=== PATIENT | female | born 1965 | race Caucasian/White ===

== ENCOUNTER → 2019-06-09 09:45 | Outpatient (CLI) | payer OTHER, SELFPAY ==
[2019-06-09 10:25] LABS: Anion Gap 13.5 mEq/L (5-15); Blood Urea Nitrogen 18 mg/dL (7-18); Calcium 9.1 mg/dL (8.5-10.1); Carbon Dioxide 30 mmol/L (21.0-32.0); Chloride 104 mmol/L (98-107); Estimated Glomerular Filt Rate 47 ml/min (>60); GFR (African American) 57 ML/MIN (>60); Glucose 110 mg/dL (74-106); Potassium 4.5 mmoL/L (3.5-5.1); Sodium 143 mmol/L (137-145)
== END ==
LOC: LAB 09:45
PROVIDERS: Visit Provider Nurse Practitioner Family
DX: I11.9 Hypertensive heart disease without heart failure (principal); I73.9 Peripheral vascular disease, unspecified; R06.00 Dyspnea, unspecified; E78.5 Hyperlipidemia, unspecified; I51.89 Other ill-defined heart diseases; R60.0 Localized edema; R63.5 Abnormal weight gain; Z72.0 Tobacco use
CPT/HCPCS: 36415; 80048; 83880